=== PATIENT | female | born 1985 | race Caucasian/White ===

== ENCOUNTER 2020-04-10 16:45 | Emergency (ER) | payer MEDICARE, OTHER ==
[~2020-04-10] VITALS: Ht 165.1 cm; Wt 73.5 kg
--- NOTE | 2020-04-10 17:03 | PHYS DOC ---
Past History Past Medical History: No Pertinent History (ANTOINETTE CHACON MD) Past Surgical History: No Surgical History (ANTOINETTE CHACON MD) Alcohol Use: None (ANTOINETTE CHACON MD) Adult General Chief Complaint Chief Complaint: VAGINAL BLEEDING [facility] HPI Patient is a 34-year-old female 8 weeks by last menstrual period now presenting to emergency department complaint of new onset of vaginal bleeding suprapubic abdominal pain. Patient states that she started having bleeding 3 days ago. 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 Patient states that she was seen [facility] 2 days ago and an ultrasound was done but states that she did not get any information based on the ultrasound and they simply stated that they could not tell her she had a . Patient does state that her blood is O+. States that since the ultrasound was obtained has been having worsening suprapubic abdominal pain radiates into bilateral lower quadrants. States that she has been having dark red blood clots since that time. Denies any nausea, vomiting, fever, chills, diarrhea, chest pain or shortness of breath (ANTOINETTE CHACON MD) Review of Systems Review of Systems Constitutional: Denies fever or chills [] Eyes: Denies change in visual acuity, redness, or eye pain [] HENT: Denies nasal congestion or sore throat [] Respiratory: Denies cough or shortness of breath [] Cardiovascular: No additional information not addressed in HPI [] GI: Denies abdominal pain, nausea, vomiting, bloody stools or diarrhea [] : Denies dysuria or hematuria [] Musculoskeletal: Denies back pain or joint pain [] Integument: Denies rash or skin lesions [] Neurologic: Denies headache, focal weakness or sensory changes [] Endocrine: Denies polyuria or polydipsia [] All other systems were reviewed and found to be within normal limits, except as documented in this note. (ANTOINETTE CHACON MD) Allergies Allergies Allergies Coded Allergies Type Severity Reaction Last Updated Verified No Known Drug Allergies 04/10/20 No (ANTOINETTE CHACON MD) Physical Exam Physical Exam Constitutional: Well developed, well nourished, no acute distress, non-toxic appearance. [] HENT: Normocephalic, atraumatic, bilateral external ears normal, oropharynx moist, no oral exudates, nose normal. [] Eyes: PERRLA, EOMI, conjunctiva normal, no discharge. [] Neck: Normal range of motion, no tenderness, supple, no stridor. [] Cardiovascular:Heart rate regular rhythm, no murmur [] Lungs & Thorax: Bilateral breath sounds clear to auscultation [] Abdomen: Bowel sounds normal, soft, no tenderness, no masses, no pulsatile masses. [] Skin: Warm, dry, no erythema, no rash. [] Back: No tenderness, no CVA tenderness. [] Extremities: No tenderness, no cyanosis, no clubbing, ROM intact, no edema. [] Neurologic: Alert and oriented X 3, normal motor function, normal sensory function, no focal deficits noted. [] Psychologic: Affect normal, judgement normal, mood normal. [] (ANTOINETTE CHACON MD) Current Patient Data Vital Signs Vital Signs Date Time Temp Pulse Resp B/P (MAP) Pulse Ox O2 Delivery O2 Flow Rate FiO2 04/10/20 16:54 97.9 99 16 151/91 (111) 100 Room Air (ANTOINETTE CHACON MD) EKG EKG [] (ANTOINETTE CHACON MD) Radiology/Procedures Radiology/Procedures [] (ANTOINETTE CHACON MD) Heart Score Risk Factors: Risk Factors: DM, Current or recent (<one month) smoker, HTN, HLP, family history of CAD, obesity. Risk Scores: Risk Factors: DM, Current or recent (<one month) smoker, HTN, HLP, family history of CAD, obesity. (ANTOINETTE CHACON MD) Course & Med Decision Making Course & Med Decision Making Pertinent Labs and Imaging studies reviewed. (See chart for details) 34f presenting the emergency department onset of vaginal bleeding in the setting of . Patient does have worsening abdominal pain. At this time will obtain an ultrasound to be sure there is no evidence of ectopic or ovarian cyst (ANTOINETTE CHACON MD) Course & Med Decision Making Patient is a 34-year-old female, who presents with vaginal bleeding and wanting a transvaginal ultrasound. Results of the ultrasound below. No ectopic seen. No obvious fetus seen at this time. Discussed all findings with patient and gave ultrasound. Advised to follow-up with [facility] first thing tomorrow to discuss the ED visit and need for further evaluation and treatment. Gave strict return precautions to the ED. Patient grateful, verbalized understanding and agreed with plan of discharge. IMPRESSION: * Vascular flow is seen to the ovaries. * Cystic structures are seen at the lower uterine segment to cervical region. This could be secondary to multiple nabothian cysts. * Thickening of the endometrial stripe without a definite intrauterine pole seen at this time. Electronically signed by: Genaro Ernst MD (04/10/2020 6:39 PM) [id number] (AMELIA BLAKELY MD) Dragon Disclaimer Dragon Disclaimer This electronic medical record was generated, in whole or in part, using a voice recognition dictation system. (ANTOINETTE CHACON MD) Departure Departure: Referrals: BRIANA MARTINEZ MD (PCP) ANTOINETTE CHACON MD Apr 10, 2020 17:03 AMELIA BLAKELY MD Apr 10, 2020 19:02
[2020-04-10 18:19] LABS: BILIRUBIN,URINE NEG (NEG); CLARITY,URINE CLOUDY; COLOR,URINE AMBER; GLUCOSE,URINE NEG (NEG)
[2020-04-10 18:20] LABS: BACTERIA,URINE 0 /HPF (0-FEW); NITRITE,URINE NEG (NEG); RBC,URINE TNTC /HPF (0-2); SQUAMOUS EPITHELIAL CELL,UR MOD /LPF; UROBILINOGEN,URINE 0.2 mg/dL (0.2 mg/dL)
--- NOTE | 2020-04-10 18:42 | RAD ---
INDICATION: Reason: vaginal bleeding / Spl. Instructions: / History: COMPARISON: None. TECHNIQUE: Grayscale and color ultrasound images uterus and adnexa. Transabdominal and transvaginal images obtained. Transvaginal images were needed to better visualize structures that were limited on transabdominal imaging. FINDINGS: Uterus: 100 x 51 x 42 mm. 12 mm cystic structure near the cervix could be from causes such as nabothian cyst. 18 mm endometrial stripe. Multiple additional cystic structures at the lower uterine segment to cervi marti regionNo intrauterine pole is seen. Right Ovary: 27 x 20 x 18 mm. Left Ovary: 37 x 18 x 17 mm. Vascular flow identified to bilateral ovaries. IMPRESSION: * Vascular flow is seen to the ovaries. * Cystic structures are seen at the lower uterine segment to cervical region. This could be secondar y to multiple nabothian cysts. * Thickening of the endometrial stripe without a definite intrauterine pole seen at this time. Electronically signed by: Genaro Ernst MD (04/10/2020 6:39 PM) [id number]
[2020-04-10 18:54] VITALS: BP 150/87
== END 2020-04-10 19:04 | disposition home or self-care (01) ==
LOC: ER 16:45
DX: O46.91 Antepartum hemorrhage, unspecified, first trimester (principal); R10.30 Lower abdominal pain, unspecified; Z3A.08 8 weeks gestation of pregnancy
CPT/HCPCS: 76801; 81001; 81025; 99284